=== PATIENT | male | born 1990 | race Caucasian/White ===

== ENCOUNTER 2020-05-01 14:38 | Emergency (ER) | payer OTHER, BC ==
[2020-05-01] MEDS ORDERED: HYDROCODONE/ACETAMINOPHEN 5-325 MG TABLET PO ONE (15:12)
--- NOTE | 2020-05-01 15:16 | ER Document Report ---
HPI - HPI Patient complains to provider of: Right knee pain Time Seen by Provider: 05/01/20 15:12 Context: 29-year-old male past medical history significant for ADHD presents to the emergency room complaining of right knee pain that started yesterday. Patient states he was helping carry an AC unit into a boat when he lost his footing stepping down into the boat and ended up locking up his right knee. States he did not land on his knee he landed on his right foot. States attempted to be seen yesterday through Worker's Comp. without success. Has been taking ibuprofen with minimal relief. No history of previous trauma or injury to his right knee. No medications today. Associated Symptoms: None Exacerbated by: Movement, Walking Relieved by: Remaining still Similar symptoms previously: No Recently seen / treated by doctor: No - ROS Systems Reviewed and Negative: Yes All other systems reviewed and negative - NEURO Neurology: DENIES: Weakness - MUSCULOSKELETAL Musculoskeletal: REPORTS: Extremity pain - DERM Skin Color: Normal Skin Problems: None Past Medical History - General Information source: Patient - Social History Smoking Status: Never Smoker Frequency of alcohol use: None Drug Abuse: None Family History: Reviewed & Not Pertinent - Past Medical History Cardiac Medical History: Denies: Hx Coronary Artery Disease, Hx Heart Attack, Hx Hypertension Pulmonary Medical History: Denies: Hx Asthma, Hx Bronchitis, Hx COPD, Hx Pneumonia Neurological Medical History: Denies: Hx Cerebrovascular Accident, Hx Seizures Musculoskeletal Medical History: Denies Hx Arthritis Past Surgical History: Denies: Hx Pacemaker - Immunizations Hx Diphtheria, Pertussis, Tetanus Vaccination: Yes Vertical Provider Document - CONSTITUTIONAL Agree With Documented VS: Yes Exam Limitations: No Limitations General Appearance: Mild Distress - INFECTION CONTROL TRAVEL OUTSIDE OF THE [place] IN LAST 30 DAYS: No - HEENT HEENT: Atraumatic, Normocephalic - NECK Neck: Normal Inspection, Supple - RESPIRATORY Respiratory: Breath Sounds Normal, No Respiratory Distress, Chest Non-Tender - CARDIOVASCULAR Cardiovascular: Regular Rate, Regular Rhythm, No Murmur - MUSCULOSKELETAL/EXTREMETIES Musculoskeletal/Extremeties: Tender - Tender on palpation to the patella. Painful range of motion with flexion, extension and lateral movement to the right knee. Negative anterior posterior draw. Negative Sandra's, negative Matt's. No obvious deformity palpated. - NEURO Level of Consciousness: Awake, Alert, Appropriate Motor/Sensory: No Motor Deficit, No Sensory Deficit - DERM Integumentary: Warm, Dry, No Rash Course - Re-evaluation Re-evalutation: 05/01/20 16:05 Patient is resting comfortably with decreased pain. Reviewed x-ray results with patient. Counseled on need to follow-up through his employer for referral to Worker's Compensation. Tylenol and/or Motrin as needed for pain. Patient states he has crutches at home and knows how to use them. Patient was given strict return to the emergency room guidelines. Return for any new or worsening symptoms. All questions were answered. Patient verbalized understanding and agrees with plan of care. 05/01/20 16:23 - Vital Signs Vital signs: Temp Pulse Resp BP Pulse Ox 98.0 F 83 18 100 05/01/20 14:54 05/01/20 14:54 05/01/20 14:54 05/01/20 14:54 - Diagnostic Test Radiology reviewed: Reports reviewed Discharge - Discharge Clinical Impression: Right knee pain Qualifiers: Chronicity: acute Qualified Code(s): M25.561 - Pain in right knee Condition: Stable Disposition: HOME, SELF-CARE Instructions: Use of Crutches ([facility]), Suspected Internal Knee Injury ([facility]) Additional Instructions: Rest, ice, elevate, weightbearing as tolerated. Use crutches as instructed. You will need to follow-up through your employer for referral to Worker's Compensation. Can take Tylenol and or Motrin as needed for pain. Return to the emergency room for any new or worsening symptoms. Referrals: [facility],NO [Primary Care Provider] - Follow up as needed
--- NOTE | 2020-05-01 15:58 | RADIOLOGY REPORT (SQ) ---
EXAM DESCRIPTION: KNEE RIGHT 4 VIEWS IMAGES COMPLETED DATE/TIME: 05/01/2020 3:42 pm REASON FOR STUDY: pain COMPARISON: None. NUMBER OF VIEWS: Four views. TECHNIQUE: AP, lateral, and both oblique radiographic images acquired of the right knee. LIMITATIONS: None. FINDINGS: MINERALIZATION: Normal. BONES: No acute fracture or dislocation. JOINT: No effusion. SOFT TISSUES: No soft tissue swelling or radiopaque foreign body. OTHER: Enthesophytes at the calcaneal insertion of the quadriceps tendon. IMPRESSION: NEGATIVE STUDY OF THE RIGHT KNEE. NO RADIOGRAPHIC EVIDENCE OF ACUTE INJURY. TECHNICAL DOCUMENTATION: JOB ID: [id number] 2010 [employer]- All Rights Reserved Reading location - IP/workstation name: [email or web address]
[2020-05-01 16:25] VITALS: BP 138/94
== END 2020-05-01 16:23 | disposition home or self-care (01) ==
LOC: ER 14:38
DX: M25.561 Pain in right knee (principal)
CPT/HCPCS: 99283